=== PATIENT | male | born 1960 | race Caucasian/White ===

== ENCOUNTER 2017-03-07 10:14 | Emergency (ER) | payer MEDICAID ==
[~2017-03-07] VITALS: Ht 170.2 cm; Wt 91.0 kg
[2017-03-07] MEDS ORDERED: VALACYCLOVIR HCL 500MG TABLET PO STA (10:49)
[2017-03-07 10:51] VITALS: BP 124/69
[2017-03-07] MEDS ORDERED: PREDNISOLONE 15 MG/5 ML ORAL SYRINGE PO ONE (11:00)
[2017-03-07] MEDS ORDERED: PREDNISONE 20MG TABLET PO ONE (11:15)
== END 2017-03-07 11:38 | disposition home or self-care (01) ==
LOC: ER 10:58
DX: G51.0 Bell's palsy (principal); E78.00 Pure hypercholesterolemia, unspecified; I10 Essential (primary) hypertension; I25.10 Atherosclerotic heart disease of native coronary artery without angina pectoris; Z95.0 Presence of cardiac pacemaker; Z91.013 Allergy to seafood
CPT/HCPCS: 99283

== ENCOUNTER 2018-10-09 14:39 | Emergency (ER) | payer MEDICAID ==
[~2018-10-09] VITALS: Ht 167.6 cm; Wt 99.0 kg
[2018-10-09] MEDS ORDERED: SODIUM CHLORIDE 0.9% 1000ML BAG (SEPSIS BOLUS) IV ONE (16:45)
[2018-10-09 16:53] VITALS: BP 153/75
[2018-10-09] MEDS ORDERED: ACETAMINOPHEN 325MG TABLET PO ONE (17:00)
[2018-10-09] MEDS ORDERED: ONDANSETRON HCL 4MG/2ML INJ IV STA (17:00)
[2018-10-09] MEDS ORDERED: MORPHINE SULFATE 4 MG/ML CPJ (NOT FOR IM USE) IV STA (17:00)
[2018-10-09] MEDS ORDERED: LEVOFLOXACIN 750MG PREMIX 150 ML IV ONE (17:00)
[2018-10-09] MEDS ORDERED: CEFTRIAXONE 1 G PREMIX 50 ML IV ONE (17:00)
[2018-10-09 17:08] LABS: BASOPHILS % 0.7 % (0.0-2.0); EOSINOPHILS % 0.1 % (0.0-5.0); HEMATOCRIT. 45.3 % (42.0-52.0); HEMOGLOBIN. 15.6 g/dL (14.0-18.0); LYMPHOCYTES % 7.1 % (20.0-50.0); MEAN CORPUSCULAR HEMOGLOBIN 31.5 pg (28.0-32.0); MEAN CORPUSCULAR VOLUME 91.3 fL (80.0-94.0); MEAN PLATELET VOLUME 8.6 fl (7.4-10.4); MONOCYTES % 5.8 % (2.0-8.0); NEUTROPHILS % 86.3 % (40.0-76.0); PLATELET 202 x1000/uL (130-400); RED BLOOD CELL COUNT 4.96 mill/uL (4.7-6.1); RED CELL DISTRIBUTION WIDTH 13.4 % (11.6-14.6)
[2018-10-09 17:12] LABS: CHLORIDE 101 mEq/L (98-107)
[2018-10-09 17:13] LABS: INR 1.1; PARTIAL THROMBOPLASTIN TIME 29.3 sec (23.4-31.0); PROTHROMBIN TIME 11.4 sec (9.6-11.0)
[2018-10-09 17:42] LABS: CLARITY URINE CLEAR (CLEAR); COLOR URINE YELLOW (YELLOW); KETONES URINE NEGATIVE (NEGATIVE); LEUKOCYTE ESTERASE URINE TRACE (NEGATIVE); NITRITE URINE NEGATIVE (NEGATIVE); OCCULT BLOOD URINE TRACE (NEGATIVE); PH URINE 7.5 (4.5-8.0); PROTEIN URINE NEGATIVE (NEGATIVE); SPECIFIC GRAVITY URINE 1.005 (1.005-1.030)
[2018-10-09] MEDS ORDERED: IOHEXOL-300 100 ML BOTTLE ONE (18:28)
== END 2018-10-09 19:11 | disposition home or self-care (01) ==
LOC: ER 14:39
DX: N10 Acute pyelonephritis (principal)
CPT/HCPCS: 36415; 71045; 74177; 80053; 81003; 83605; 83690; 84145; 84484; 85025; 85610; 85730; 87040; 87086; 93005; 96365; 96375; 99284; J1956; J2270; J2405; J7030; Q9967

== ENCOUNTER 2019-07-16 03:47 | Emergency (ER) | payer MEDICAID ==
[~2019-07-16] VITALS: Ht 170.2 cm; Wt 104.0 kg
[2019-07-16] MEDS ORDERED: IBUP-2029 PO (03:58)
[2019-07-16] MEDS ORDERED: TAMS-11 PO (03:59)
[2019-07-16] MEDS ORDERED: LOSA50TA41 PO (03:59)
[2019-07-16] MEDS ORDERED: ATEN-42 PO (04:00)
[2019-07-16] MEDS ORDERED: GABA-290 PO (04:00)
[2019-07-16] MEDS ORDERED: OMEP20CA14 PO (04:00)
[2019-07-16] MEDS ORDERED: ATOR40TA70 PO (04:01)
[2019-07-16 06:51] VITALS: BP 136/84
== END 2019-07-16 06:52 | disposition home or self-care (01) ==
LOC: ER 03:47
DX: R42 Dizziness and giddiness (principal); T39.315A Adverse effect of propionic acid derivatives, initial encounter; T44.6X5A Adverse effect of alpha-adrenoreceptor antagonists, initial encounter; T42.6X5A Adverse effect of other antiepileptic and sedative-hypnotic drugs, initial encounter; I10 Essential (primary) hypertension; E78.00 Pure hypercholesterolemia, unspecified; Z95.0 Presence of cardiac pacemaker; Z91.013 Allergy to seafood; Y92.018 Other place in single-family (private) house as the place of occurrence of the external cause
CPT/HCPCS: 99282